=== PATIENT | male | born 1960 | race Caucasian/White ===

== ENCOUNTER 2024-10-08 13:23 | Emergency (ER) | payer SELFPAY ==
[~2024-10-08] VITALS: Ht 190.5 cm; Wt 82.0 kg
[2024-10-08 13:25] VITALS: O2SAT 99
[2024-10-08 14:04] LABS: CHLORIDE 109 mEq/L (98-107); POTASSIUM 3.9 mEq/L (3.5-5.1); SODIUM 143 mEq/L (136-145)
[2024-10-08 14:05] LABS: CARBON DIOXIDE 25 mEq/L (21-32)
[2024-10-08 14:06] LABS: CALCIUM 9.1 mg/dL (8.7-10.4)
[2024-10-08 14:09] LABS: BASOPHILS % 0.8 % (0.0-2.0); DIFFERENTIAL COMMENT 0; HEMATOCRIT. 43.6 % (42.0-52.0); HEMOGLOBIN. 14.7 g/dL (14.0-18.0); LYMPHOCYTES % 26.4 % (20.0-50.0); MEAN CORPUSCULAR HEMOGLOBIN 31.8 pg (28.0-32.0); MEAN CORPUSCULAR HGB CONC 33.7 g/dL (31.0-37.0); MEAN CORPUSCULAR VOLUME 94.5 fL (80.0-94.0); MEAN PLATELET VOLUME 11.4 fl (7.4-10.4); MONOCYTES % 7.4 % (2.0-8.0); NEUTROPHILS % 64.4 % (40.0-76.0); PLATELET 175 x1000/uL (130-400); RED BLOOD CELL COUNT 4.61 mill/uL (4.7-6.1); RED CELL DISTRIBUTION WIDTH 13.6 % (11.6-14.6); WHITE BLOOD COUNT 6.6 x1000/uL (4.5-11.0)
[2024-10-08 14:10] LABS: CREATININE 1.1 mg/dL (0.6-1.3); GLUCOSE 115 mg/dL (70-105)
[2024-10-08 14:11] LABS: UREA NITROGEN BLOOD 13 mg/dL (9-23)
[2024-10-08 14:40] LABS: TROPONIN I HIGH SENSITIVITY < 4 ng/L (3.0-53)
[2024-10-08 16:07] VITALS: BP 142/94; PULSE 73; RESP 15; TEMP 37.1; O2SAT 99
== END 2024-10-08 16:30 | disposition home or self-care (01) ==
LOC: ER 13:23
DX: R07.89 Other chest pain (principal)
CPT/HCPCS: 36415; 71045; 80048; 83880; 84484; 85025; 93005; 99285